=== PATIENT | male | born 1940 | race Caucasian/White ===

== ENCOUNTER 2017-02-09 20:46 | Emergency (ER) | payer MEDICARE, OTHER | END 2017-02-10 00:38 | disposition home or self-care (01) | LOC: FER 20:46 | DX: S51.811A Laceration without foreign body of right forearm, initial encounter (principal); S50.01XA Contusion of right elbow, initial encounter; E11.9 Type 2 diabetes mellitus without complications; Z79.82 Long term (current) use of aspirin; Z79.84 Long term (current) use of oral hypoglycemic drugs; W19.XXXA Unspecified fall, initial encounter; Y93.67 Activity, basketball; Y92.009 Unspecified place in unspecified non-institutional (private) residence as the place of occurrence of the external cause; Y99.8 Other external cause status | CPT/HCPCS: 71010; 73080; 90471; 90715 ==

== ENCOUNTER 2017-02-17 13:10 | Emergency (ER) | payer MEDICARE, OTHER | END 2017-02-17 14:17 | disposition home or self-care (01) | LOC: FER 13:10 | DX: S51.812D Laceration without foreign body of left forearm, subsequent encounter (principal); E11.9 Type 2 diabetes mellitus without complications; X58.XXXD Exposure to other specified factors, subsequent encounter | CPT/HCPCS: 99281 ==